=== PATIENT | male | born 1975 | race Caucasian/White ===

== ENCOUNTER 2019-10-17 07:02 | Day surgery (SDC) | payer BC ==
[~2019-10-17 07:02] MED LIST: ACETAMINOPHEN 1,000 MG/100 ML BTL IVPB ONE
[2019-10-17] MEDS ORDERED: MIDAZOLAM HCL 2MG/2ML VIAL IV ONE (07:03)
[2019-10-17] MEDS ORDERED: ONDANSETRON HCL IV 4 MG/2 ML VIAL IVP ONE (07:03)
[2019-10-17] MEDS ORDERED: DESFLURANE 240 ML BTL INH ONE (07:03)
[2019-10-17] MEDS ORDERED: LIDOCAINE 2% MDV (20MG/ML) 20ML VIAL IV ONE (07:03)
[2019-10-17] MEDS ORDERED: DEXAMETHASONE 4 MG/ML 1ML VIAL IVP ONE (07:03)
[2019-10-17] MEDS ORDERED: PROPOFOL 10 MG/ML VIAL IV ONE (07:03)
[2019-10-17] MEDS ORDERED: KETOROLAC 30 MG/ML VIAL IVP ONE (07:03)
[2019-10-17] MEDS ORDERED: GLYCOPYRROLATE 0.2 MG/ML ML IV ONE (07:03)
[2019-10-17] MEDS ORDERED: FENTANYL PF 100MCG/2ML VIAL IV ONE (07:03)
[2019-10-17] MEDS ORDERED: RINGERS SOLUTION,LACTATED 1,000 ML IV ONE (07:30)
[2019-10-17] MEDS ORDERED: BUPIVACAINE 0.25% W/EPI MPF 30ML VIAL SQ ONE (09:03)
[2019-10-17] MEDS ORDERED: OXYCODONE HCL/APAP 5MG/325MG TABLET PO ONE (09:52)
--- NOTE | 2019-10-17 09:54 | Operative Note ---
DATE OF SURGERY: 10/17/2019 SURGEON: Sidney Han D.O. REFERRING PHYSICIAN: Elzbieta Medellin PREOPERATIVE DIAGNOSIS: TORN MEDIAL MENISCUS OF THE LEFT KNEE. POSTOPERATIVE DIAGNOSIS: 1. TORN MEDIAL MENISCUS LEFT KNEE. 2. 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 OPERATION: 1. ARTHROSCOPIC PARTIAL MEDIAL MENISCECTOMY LEFT KNEE. 2. ARTHROSCOPIC CHONDROPLASTY LATERAL FEMORAL CONDYLE LEFT KNEE. DESCRIPTION: This 44-year-old male was taken to the Operating Room and placed in the supine position on the operating room table. A general anesthetic was administered, the left lower extremity was elevated, it was exsanguinated, and the tourniquet inflated to 250 mmHg. Arthroscopic knee kovacs was applied. The left knee was prepped with Hibiclens and draped in the usual fashion. An inferolateral portal was established for the 4 mm arthroscope and initial evaluation of the joint demonstrated normal appearance of the suprapatellar pouch. Very minimal Grade 2 chondromalacia was noted in the median ridge of the patella, it was probed through an inferomedial portal and it was not grossly unstably and not further disturbed. The trochlea appeared normal. The medial and lateral gutters were examined and found to be normal. The medial compartment was entered and a complex tear of the posterior horn of the medial meniscus was present with the apex of that tear being at approximately the 11:00-11:30 position to very near the meniscal synovial junction. Horizontal cleavage components were also present extending back to the root of the medial meniscus, but the root itself was not torn. The basket forceps and rotating shaver were used to resect unstable fragments of the posterior horn of the medial meniscus. It was then re-probed and confirmed to be stable. No articular cartilage defects of the medial femoral condyle were present. The intercondylar notch was examined and found to be normal. The lateral compartment was entered and at a small area of the meniscal rest there was identified an articular cartilage lesion with a small flap type tear and this was trimmed with the rotating shaver. The tear did extend down to the subchondral bone. The lateral meniscus was normal and the weight bearing surface of the lateral femoral condyle was normal. The joint was then copiously irrigated and suctioned and all areas were re-examined. No additional findings were present. The joint was suctioned, the instruments were removed, and the portals infiltrated with 0.25% Marcaine with Epinephrine. Sterile dressings were applied, tourniquet and knee kovacs released and the patient was taken to the Recovery Room in satisfactory condition. GROSS PATHOLOGY: The patient demonstrated minimal Grade 2 chondromalacia of the median ridge of the patella and a Grade 3 lesion which is very small at the meniscal rest of the lateral femoral condyle. This lesion is approximately 0.75 to 1 cm at maximal size. Complex tear of the medial meniscus was present as described. JOB NUMBER: [id number] [facility]
== END 2019-10-17 10:08 | disposition home or self-care (01) ==
LOC: SUR 07:02
PROVIDERS: ATTEND Orthopaedic Surgery
DX: S83.232A Complex tear of medial meniscus, current injury, left knee, initial encounter (principal); M22.42 Chondromalacia patellae, left knee
CPT/HCPCS: J1885; J2405; J7120